=== PATIENT | female | born 1955 | race Caucasian/White ===

== ENCOUNTER 2017-05-06 10:33 | Outpatient (CLI) | payer OTHER ==
[~2017-05-06] VITALS: Ht 177.8 cm; Wt 75.0 kg
[~2017-05-06 10:33] MED LIST: LISINOPRIL5 MG PO; LOVASTATIN10 MG PO; PEPCID40 MG PO; PRILOSEC20 MG PO; TAPAZOLE 5 MG TA5 MG PO; VITAMIN D50000 UNIT PO
[2017-05-06 10:59] VITALS: BP 116/71; Ht 177.8 cm; Wt 75.0 kg
== END 2017-05-06 11:32 | disposition home or self-care (01) ==
LOC: D.OPS 10:33
DX: M81.0 Age-related osteoporosis without current pathological fracture (principal)

== ENCOUNTER 2017-11-18 13:16 | Outpatient (CLI) | payer OTHER ==
[~2017-11-18] VITALS: Ht 177.8 cm; Wt 76.4 kg
[2017-11-18 14:00] VITALS: BP 127/82; Ht 177.8 cm; Wt 76.4 kg
== END 2017-11-18 14:48 ==
LOC: D.OPS 13:16
DX: M81.0 Age-related osteoporosis without current pathological fracture (principal); Z01.812 Encounter for preprocedural laboratory examination

== ENCOUNTER 2018-05-27 08:15 | Outpatient (CLI) | payer OTHER ==
[~2018-05-27] VITALS: Ht 177.8 cm; Wt 75.0 kg
[2018-05-27 08:52] VITALS: Ht 177.8 cm; Wt 75.0 kg
--- NOTE | 2018-05-27 09:12 | NUR ---
PT LEFT UNIT AMBULATING AT 0910
== END 2018-05-27 09:10 | disposition home or self-care (01) ==
LOC: D.OPS 08:15
PROVIDERS: ATTEND Family Medicine
DX: M18.0 Bilateral primary osteoarthritis of first carpometacarpal joints (principal)

== ENCOUNTER 2018-11-24 11:51 | Outpatient (CLI) | payer OTHER ==
[~2018-11-24] VITALS: Ht 177.8 cm; Wt 75.0 kg
[2018-11-24 12:11] VITALS: BP 138/84; Ht 177.8 cm; Wt 75.0 kg
== END 2018-11-24 12:14 | disposition home or self-care (01) ==
LOC: D.OPS 11:51
PROVIDERS: ATTEND Family Medicine
DX: M18.0 Bilateral primary osteoarthritis of first carpometacarpal joints (principal)

== ENCOUNTER → 2019-06-02 11:50 | Outpatient (CLI) | payer OTHER ==
[~2019-06-02] VITALS: Ht 177.8 cm; Wt 75.0 kg
[2019-06-02 11:53] VITALS: BP 151/87; Ht 177.8 cm; Wt 75.0 kg
== END | disposition home or self-care (01) ==
LOC: D.OPS 11:50
PROVIDERS: ATTEND Nurse Practitioner Family
DX: M81.0 Age-related osteoporosis without current pathological fracture (principal)

== ENCOUNTER → 2019-12-30 11:17 | Outpatient (CLI) | payer OTHER ==
[~2019-12-30] VITALS: Ht 177.8 cm; Wt 75.0 kg
[2019-12-30 11:40] VITALS: BP 136/82; Ht 177.8 cm; Wt 75.0 kg
== END | disposition home or self-care (01) ==
LOC: D.OPS 12-07 13:00
PROVIDERS: ATTEND Family Medicine
DX: M81.0 Age-related osteoporosis without current pathological fracture (principal)

== ENCOUNTER 2020-07-09 12:16 | Emergency (ER) | payer OTHER ==
[~2020-07-09] VITALS: Ht 177.8 cm; Wt 79.5 kg
[2020-07-09 12:18] VITALS: BP 161/93; Ht 177.8 cm; Wt 79.5 kg
[2020-07-09 12:46] LABS: BILIRUBIN NEGATIVE (NEGATIVE); KETONE NEGATIVE (NEGATIVE); NITRITE NEGATIVE (NEGATIVE); UROBILINOGEN NORMAL mg/dL (< 2)
[2020-07-09 12:51] LABS: BASOPHILS 0.3 % (0-2); EOSINOPHILS 1.5 % (0-7); HEMOGLOBIN 14.6 g/dL (12-16); IMMATURE GRANULOCYTES 0.2 % (0-5); LYMPHOCYTE ABS# 2.94 10x3/uL (1.18-3.74); LYMPHOCYTES 29.7 % (15-50); MCHC 33.2 g/dL (31.0-37.0); MCV 90.3 fL (80.0-100.0); MONOCYTES 6.9 % (2-11); NEUTROPHIL ABS# 6.08 10x3/uL (1.56-6.13); NEUTROPHILS 61.4 % (40-80); PLATELET COUNT 283 10x3/uL (130-400); RBC 4.87 10x6/uL (4.00-5.40); RDW 13.5 % (11.5-14.5); WBC 9.9 10x3/uL (4.8-10.8)
[2020-07-09 13:14] LABS: CALC OSMOLALITY 283 mosm/kg (275-300); CALCIUM 8.4 mg/dL (8.5-10.1); CARBON DIOXIDE 28.5 mmol/L (21.0-32.0); CHLORIDE - SERUM 106 mmol/L (98-107); CREATININE - SERUM 0.9 mg/dL (0.6-1.3); GLUCOSE 102 mg/dL (74-106); POTASSIUM - SERUM 3.4 mmol/L (3.5-5.1); SODIUM 142 mmol/L (136-145); UREA NITROGEN 16 mg/dL (7-18); eGFR NON AFRICAN AMERICAN 67 mL/min (90-120)
[2020-07-09 13:23] LABS: ALBUMIN 3.5 g/dL (3.4-5.0); ALKALINE PHOSPHATASE 71 U/L (30-120); ALT (SGPT) 16 U/L (10-68); AMYLASE - SERUM 54 U/L (25-115); BILIRUBIN - TOTAL 0.36 mg/dL (0.2-1.3); LIPASE 136 U/L (73-393); PROTEIN - SERUM 6.9 g/dL (6.4-8.2); TROPONIN-I < 0.017 ng/mL (0.000-0.060)
--- NOTE | 2020-07-10 10:50 | CN ---
PATIENT NAME:KAY AUSTIN MEDICAL RECORD: [id number] : 57 LOCATION:.ER ADMIT DATE: ACCOUNT: [id number] CONSULTING PHYSICIAN: FERNY RANGEL MD REFERRING PHYSICIAN: SUHAIL SCHULER MD DATE OF CONSULTATION: 07/09/2020 CHIEF COMPLAINT: Bleeding. HISTORY OF PRESENT ILLNESS: I received a call from the answering service that Ms. Austin was on her way to the Emergency Room. I spoke to the nurse practitioner in the Emergency Room and I have discussed this case with her. I have personally reviewed the CT images. The patient was diagnosed by EGD as having ulcers a couple of weeks ago. She has been on Protonix once daily as well as Carafate. This morning, she said that she had some epigastric pain. She either vomited or coughed up some blood. Her CT scan does not demonstrate any significant catharsis that I would expect from a bleeding ulcer. Additionally, her BUN is normal. She has not been having any melena. Symptoms started this morning, they were of sudden onset. She has been having epigastric pain, which is of moderate intensity. REVIEW OF SYSTEMS: No fever, no itching, no blurred vision, no nasal congestion, no dyspnea on exertion. No chest pain, no thoracic pain. No syncope. The review of systems is negative other than as is described above. ALLERGIES: CODEINE. HOME MEDICATIONS: She is on a proton pump inhibitor as well as methimazole and she also has Pepcid at home. She states that she has been taking 1 PPI as well as the Carafate. PAST MEDICAL AND SURGICAL HISTORY: Cataracts, dentures, hypothyroidism, gastroesophageal reflux, kidney stones, tubal ligation. FAMILY HISTORY: Parent had cardiovascular disease and cancer. Sibling had cancer. SOCIAL HISTORY: She smokes less than a pack of cigarettes per day. PHYSICAL EXAMINATION: GENERAL: The patient does not appear acutely ill. She does not appear chronically ill. VITAL SIGNS: Reviewed. EARS: External ears appear normal. EYES: Extraocular movements are intact. NECK: Trachea is midline. CHEST: No intercostal retractions. PULMONARY: Nonlabored. No stridor. ABDOMEN: Nontender. EXTREMITIES: No peripheral cyanosis. The entire physical examination was performed in the presence of a wall covering installer. I CONSULT REPORT [id number] KAY AUSTIN have reviewed her entire laboratory battery that has been done here in the hospital. IMPRESSION: Questionable upper gastrointestinal bleeding, likely minor gastrointestinal bleeding in a patient with known peptic ulcer disease and she is hemodynamically stable. PLAN: I want her to take a proton pump inhibitor in the morning, H2 meaghan at night and continue with Carafate. 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
== END 2020-07-09 14:40 | disposition home or self-care (01) ==
LOC: D.ER 12:16
PROVIDERS: Family Medicine
DX: K21.00 Gastro-esophageal reflux disease with esophagitis, without bleeding (principal); E03.9 Hypothyroidism, unspecified